=== PATIENT | male | born 1975 | race Caucasian/White ===

== ENCOUNTER 2018-09-25 16:50 | Emergency (ER) | payer OTHER ==
[~2018-09-25 16:50] MED LIST: CEPH-13 PO; CLON-331 PO; TRAZ100T31 PO; VENL75TA12 PO
[2018-09-25 17:50] VITALS: BP 121/73
--- NOTE | 2018-09-25 17:57 | ER Report ---
History and Physical Time Seen By MD: 17:54 Hx. of Stated Complaint: FELL "ACOUPLE FEET" OF A LADDER IN THE KITCHEN. FELT A POP IN LEFT KNEE. PAIN FROM KNEE DOWN TO FOOT. PAIN IN LEFT ELBOW AND RT HEEL HPI/ROS CHIEF COMPLAINT: Fall from ladder HISTORY OF PRESENT ILLNESS: 43-year-old male presents to the ER complaining of left leg pain and left elbow pain after a fall from a ladder approximately 3-4 feet in his kitchen. He landed on his left lower extremity with a hyper extensive mechanism of injury. He felt a popping sensation in his knee. He complains of 3/10 pain with radiation down his tib-fib. He also landed on his left elbow but demonstrates full range of motion. Patient denies head or neck injury. Patient admits it feels like he tore the anterior cruciate ligament similar to previous injury. He hadn't high school. Allergies: Coded Allergies: No Known Drug Allergies (Unverified , 09/25/18) Home Meds Reported Medications Trazodone Hcl (TRAZODONE HCL) 100 Mg Tablet, 100 MG PO QHS, TAB 02/17/15 Discontinued Reported Medications Venlafaxine Hcl (VENLAFAXINE HCL) 75 Mg Tab, 75 MG PO QDAY, #5 TAB 02/17/15 Clonazepam (CLONAZEPAM) 0.5 Mg Tablet, 0.5 MG PO BID PRN for ANXIETY, TAB 02/17/15 Reviewed Nurses Notes: Yes Old Medical Records Reviewed: Yes Hx Smoking: No Smoking Status: Former Smoker Hx Substance Use Disorder: No Hx Alcohol Use: No Constitutional Vital Sign - Last 24 Hours 09/25/18 17:50 Temp 98.1 Pulse 72 Resp 16 B/P (MAP) 121/73 Pulse Ox 91 O2 Delivery Room Air Physical Exam General Appearance: The patient is alert, has no immediate need for airway protection and no current signs of toxicity. Palpation of the head and neck reveals no tenderness or trauma Eyes: Pupils equal and round no injection. Respiratory: Chest is non tender, lungs are clear to auscultation. No chest wall tenderness Cardiac: regular rate and rhythm Gastrointestinal: Abdomen is soft and non tender, no masses, bowel sounds normal. Musculoskeletal: Neck: Neck is supple and non tender. Extremities have full range of motion and are non tender. Examination of the left lower extremity reveals no soft tissue swelling, deformity or tenderness. Ligaments were intact on stressing. The left foot is neurovascularly intact. Ankles unremarkable and the hip are unremarkable Skin: No rashes or lesions. DIFFERENTIAL DIAGNOSIS: After history and physical exam differential diagnosis was considered for sprain, strain, fracture, dislocation, contusion Medical Decision Making EKG/Imaging Imaging X-ray: Three-view left knee, left tib-fib, 4 views was obtained. I viewed the images myself on the PACS system. My interpretation of the images is: No fracture no dislocation or malalignment was noted. The radiologist interpretation had no clinically significant variation from this interpretation. ED Course/Re-evaluation ED Course Patient was admitted to an examination room. H&P was done. The differential diagnoses was considered. Patient primarily with left knee injury from fall from ladder approximately 3 or 4 feet. He felt a popping sensation in his left knee. There is no gross deformity, soft tissue swelling or joint effusion noted. Left lower extremity is neurovascularly intact. Diagnostic x-rays were performed of the knee and the left tib-fib. X-rays were unremarkable. Ligament stressing was unremarkable. Patient was unable to tolerate Damaso's maneuver. Patient was placed in a knee immobilizer and advised to follow-up with orthopedics. He follows up with the [facility] in [place]. Ibuprofen 600 mg 3 times daily. Patient was offered pain medication but declined. Patient has his own crutches. Decision to Disposition Date: Sep 25, 2018 Decision to Disposition Time: 18:31 Depart Departure Latest Vital Signs Vital Signs Date Time Temp Pulse Resp B/P (MAP) Pulse Ox O2 Delivery O2 Flow Rate FiO2 09/25/18 17:50 98.1 72 16 121/73 91 Room Air Impression: Primary Impression: Fall from ladder Additional Impressions: Left knee sprain Left elbow contusion Condition: Improved Disposition: HOME OR SELF-CARE Patient Instructions: Knee Sprain (ED) Additional Instructions: Take ibuprofen 200 mg 3 tablets 3 times a day with food Ice packs to your knee for 2-3 days Follow up with orthopedics through the [facility] if not significantly improved in for 5 days Problem Qualifiers Primary Impression: Fall from ladder Encounter type: initial encounter Qualified Codes: W11.XXXA - Fall on and from ladder, initial encounter Additional Impressions: Left knee sprain Encounter type: initial encounter Involved ligament of knee: unspecified ligament Qualified Codes: S83.92XA - Sprain of unspecified site of left knee, initial encounter Left elbow contusion Encounter type: initial encounter Qualified Codes: S50.02XA - Contusion of left elbow, initial encounter HARJEET GOLDSTEIN DO Sep 25, 2018 17:57
--- NOTE | 2018-09-25 18:46 | RADIOLOGY IMAGING REPORT ---
FACILITY: [facility] - [place] PATIENT NAME: Alvaro Figueroa : 1975 MR: [id number] V: [id number] EXAM DATE: ORDERING PHYSICIAN: HARJEET GOLDSTEIN TECHNOLOGIST: Location: [facility] [place] Patient: Alvaro Figueroa : 1975 Visit/Account:[id number] Date of Sevice: 09/25/2018 TIBIA FIBULA LEFT Indication: Left lower leg pain after fall from ladder. Comparison: None available Findings: Two views left tibia and fibula show no evidence of fracture, dislocation, or acute osseous abnormal ity. No bony lesions or periosteal abnormality. There is no focal soft tissue abnormality. No evidence of radiopaque foreign body. IMPRESSION: No acute osseous abnormality left tibia/fibula Report Dictated By: Virgil Zaman at 09/25/2018 6:39 PM Report E-Signed By: Virgil Zaman at 09/25/2018 6:42 PM WSN:[email or web address]
--- NOTE | 2018-09-25 18:47 | RADIOLOGY IMAGING REPORT ---
FACILITY: [facility] PATIENT NAME: Alvaro Figueroa : 1975 MR: [id number] V: [id number] EXAM DATE: [id number] ORDERING PHYSICIAN: HARJEET GOLDSTEIN TECHNOLOGIST: Location: [facility] Patient: Alvaro Figueroa : 1975 Visit/Account:[id number] Date of Sevice: 09/25/2018 KNEE 3 VIEW LEFT Indication: Left knee pain after fall from ladder. Comparison: None available Findings: 3 views left knee were obtained. No fracture or dislocation. No significant joint effusion. No bony lesions or degenerative changes. Soft tissues are unremarkable. IMPRESSION: 1.No acute osseous abnormality of the left knee Report Dictated By: Virgil Zaman at 09/25/2018 6:43 PM Report E-Signed By: Virgil Zaman at 09/25/2018 6:43 PM WSN:[email or web address]
== END 2018-09-25 18:35 | disposition home or self-care (01) ==
LOC: ER 17:55
DX: S83.92XA Sprain of unspecified site of left knee, initial encounter (principal); S50.02XA Contusion of left elbow, initial encounter; W11.XXXA Fall on and from ladder, initial encounter
CPT/HCPCS: 73562; 73590; 99284; L1830

== ENCOUNTER → 2019-03-02 | Outpatient (CLI) | payer OTHER ==
[~2019-03-02] MED LIST changes: +BUSP10TA95 PO; +CEP125L PO; +CEPH500C24 PO; +ESCI20TA8 PO; +METH4TAB66 PO
--- NOTE | 2019-03-02 15:30 | EKG ---
[facility] PATIENT NAME: RICARDO GARDNER : [id number] MR: [id number] V: [id number] EXAM DATE: ORDERING PHYSICIAN: NAMRATA LAGUERRE TECHNOLOGIST: SURJIT Test Reason : DIZZINESS Blood Pressure : / mmHG Vent. Rate : 063 BPM Atrial Rate : 063 BPM P-R Int : 156 ms QRS Dur : 090 ms QT Int : 414 ms P-R-T Axes : 038 009 042 degrees QTc Int : 423 ms Normal sinus rhythm Normal ECG No previous ECGs available Confirmed by NAMRATA LAGUERRE ([id number]) on 03/03/2019 9:13:14 AM Referred By: MARKUS Confirmed By:NAMRATA LAGUERRE
== END ==
LOC: RESP 14:02
PROVIDERS: ATTEND Internal Medicine
DX: R42 Dizziness and giddiness (principal)